=== PATIENT | male | born 1955 ===

== ENCOUNTER 2017-03-03 21:49 | Observation (INO) | payer OTHER ==
--- NOTE | 2017-03-03 22:39 | ED PDOC ---
Arrival/HPI - General Chief Complaint: Weakness/Neurological Deficit Time Seen by Provider: 03/03/17 22:12 Historian: Patient - History of Present Illness Narrative History of Present Illness (Text): 03/03/17 22:30 Kyle Poon is a 61 year old male who presents to the emergency department complaining of confusion and lapse in memory. States he [place] [facility] [place]. Patient states he does not recall any events that happened throughout the day. Patient was in [place] preparing to leave to [place] following a presentation when he began to feel sick. Patient's friend then drove him half way to [place] where his picked him up. Patient was able to dictate the events in the emergency department after he was reminded of the events by his friend and family. Patient states he still does not remember traveling via car or giving a presentation in the morning. Family informed PMD, , of the symptoms who advised him to present to emergency department for further evaluation. Denies any fever, chills, headache , chest pain, shortness of breath, nausea, vomiting, diarrhea, urinary symptoms , or any other complaints at this time. PMD: . Time/Duration: Other (today ) Symptom Course: Improving Severity Level: Mild Activities at Onset: Light Past Medical History - Provider Review Nursing Documentation Reviewed: Yes - Musculoskeletal/Rheumatological Hx Falls: No - Genitourinary/Gynecological Hx Prostate Problems: Yes - Psychiatric Hx Depression: No Hx Emotional Abuse: No Hx Physical Abuse: No Hx Substance Use: No - Suicidal Assessment Feels Threatened In Home Enviroment: No Family/Social History - Physician Review Nursing Documentation Reviewed: Yes Family/Social History: No Known Family HX Smoking Status: Never Smoked Hx Alcohol Use: No Hx Substance Use: No Hx Substance Use Treatment: No Allergies/Home Meds Allergies/Adverse Reactions: Allergies No Known Allergies Allergy (Verified 08/17/12 22:39) Home Medications: Home Meds Medication Instructions Recorded Confirmed Acetaminophen/Codeine Phosph 1 tab PO 08/17/12 08/17/12 [Tylenol W/Codeine #3 300 mg-30 mg] Ciprofloxacin [Cipro] 500 mg PO 08/17/12 08/17/12 Review of Systems - Physician Review All systems were reviewed & negative as marked: Yes - Review of Systems Constitutional: Normal. absent: Fatigue, Fevers Respiratory: Normal. absent: SOB, Cough, Sputum Cardiovascular: Normal. absent: Chest Pain, Palpitations Gastrointestinal: Normal. absent: Abdominal Pain, Diarrhea, Nausea, Vomiting Neurological: Other (confusion and unable to recall events today ). absent: Headache, Dizziness Psychiatric: Normal Physical Exam Vital Signs Reviewed: Yes Vital Signs Temp Pulse Resp BP Pulse Ox 03/04/17 01:15 56 L 20 130/87 98 03/04/17 00:14 55 L 16 133/93 H 98 03/03/17 22:40 61 16 142/79 97 03/03/17 21:57 98.4 F 56 L 18 152/98 H 98 Temperature: Afebrile Blood Pressure: Normal Pulse: Regular Respiratory Rate: Normal Appearance: Positive for: Well-Appearing, Non-Toxic, Comfortable Pain Distress: None Mental Status: Positive for: Alert and Oriented X 3 - Systems Exam Head: Present: Atraumatic, Normocephalic Pupils: Present: PERRL Conjunctiva: Present: Normal Mouth: Present: Moist Mucous Membranes Respiratory/Chest: Present: Clear to Auscultation, Good Air Exchange. No: Respiratory Distress, Accessory Muscle Use Cardiovascular: Present: Regular Rate and Rhythm, Normal S1, S2. No: Murmurs Abdomen: Present: Normal Bowel Sounds. No: Tenderness, Distention, Peritoneal Signs Upper Extremity: Present: Normal Inspection. No: Cyanosis, Edema Lower Extremity: Present: Normal Inspection. No: Edema Neurological: Present: GCS=15, CN II-XII Intact, Speech Normal, Motor Func Grossly Intact, Normal Sensory Function Skin: Present: Warm, Dry, Normal Color. No: Rashes Psychiatric: Present: Alert, Oriented x 3, Normal Insight, Normal Concentration Medical Decision Making ED Course and Treatment: 03/03/17 22:44 Impression: A 61 year old male who presents to the emergency department complaining of confusion and lapse in memory. Patient unable to remember events that happened today. Plan: -- CT head -- EKG -- Labs, cardiac enzymes -- Drug screen -- Alcohol level -- Blood culture -- Urine culture -- Urinalysis -- Reassess and disposition Progress Notes: 03/04/17 01:43 EKG reviewed by me: Sinus Bradycardia @ 57 bpm. Left axis devation. Moderate voltage criteria for LVH CT Head results reviewed: FINDINGS: Brain: Unremarkable. No hemorrhage. No significant white matter disease. No edema. Ventricles: Unremarkable. No ventriculomegaly. Bones/joints: Unremarkable. No acute fracture. Soft tissues: Unremarkable. Vasculature: Calcific atherosclerosis of the bilateral carotid siphon. Sinuses: Unremarkable as visualized. No acute sinusitis. Mastoid air cells: Unremarkable as visualized. No mastoid effusion. IMPRESSION: No acute findings. Case discussed with Dr. Bello who is aware and agrees with the plan to observe patient at med/surg for altered mental status. Accepts patient under his service with on neurology consult. - Lab Interpretations Lab Results: 03/03/17 22:40 03/03/17 22:40 Lab Results 03/03/17 23:15: Ammonia 27 03/03/17 23:00: Urine Opiates Screen Negative, Urine Methadone Screen Negative, Ur Barbiturates Screen Negative, Ur Phencyclidine Scrn Negative, Ur Amphetamines Screen Negative, U Benzodiazepines Scrn Negative, U Oth Cocaine Metabols Negative, U Cannabinoids Screen Negative 03/03/17 23:00: Urine Color Yellow, Urine Appearance Sl cloudy, Urine pH 6.0, Ur Specific Garrison 1.020, Urine Protein Negative, Urine Glucose (UA) Negative, Urine Ketones Negative, Urine Blood Trace-lysed H, Urine Nitrate Negative, Urine Bilirubin Negative, Urine Urobilinogen 0.2, Ur Leukocyte Esterase Negative , Urine RBC 0 - 2, Urine WBC 0 - 2, Ur Epithelial Cells 0 - 2 03/03/17 22:40: Alcohol, Quantitative < 10 03/03/17 22:40: Sodium 138, Potassium 3.5 L, Chloride 103, Carbon Dioxide 27, Anion Gap 12, BUN 18, Creatinine 1.1, Est GFR ( Amer) > 60, Est GFR (Non- Af Amer) > 60, Random Glucose 104, Calcium 9.4, Phosphorus 3.8, Magnesium 2.1, Total Bilirubin 0.6, AST 35, ALT 45, Alkaline Phosphatase 60, Lactate Dehydrogenase 414, Total Creatine Kinase 116, Troponin I 0.03, Total Protein 7.8 , Albumin 4.4, Globulin 3.4, Albumin/Globulin Ratio 1.3 03/03/17 22:40: PT 10.7, INR 0.99, APTT 27.8 03/03/17 22:40: WBC 7.2, RBC 4.95, Hgb 16.2, Hct 45.5, MCV 91.9, MCH 32.7, MCHC 35.6, RDW 13.6, Plt Count 185, MPV 10.0, Gran % 62.6, Lymph % (Auto) 21.3 L, Cache % (Auto) 13.6 H, Eos % (Auto) 1.8, Baso % (Auto) 0.7, Gran # 4.51, Lymph # 1.5, Cache # 1.0 H, Eos # 0.1, Baso # 0.05 I have reviewed the lab results: Yes - RAD Interpretation Radiology Orders: 03/03/17 22:29 HEAD W/O CONTRAST [CT] Stat Office Runner: Radiologist - EKG Interpretation Interpreted by ED Physician: Yes Type: 12 lead EKG - Medication Orders Current Medication Orders: Discontinued Medications Acetaminophen (Tylenol 325mg Tab) 650 mg PO Q6H PRN PRN Reason: Pain, Mild (1-3) Last Admin: 03/04/17 11:17 Dose: 650 mg Re-Assess: MAR Pain/Vitals Document 03/04/17 12:17 SD (Rec: 03/04/17 13:10 [facility] Pain Reassessment Is This A Pain ReAssessment? Yes Sleep Is patient sleeping during reassessment? Yes Home Med (*Refrigerator Open) Confirm Administered Dose 1 unit XX .STK-MED ONE Stop: 03/04/17 06:05 Home Med (*Refrigerator Open) Confirm Administered Dose 1 unit XX .STK-MED ONE Stop: 03/04/17 06:11 Home Med (*Refrigerator Open) Confirm Administered Dose 1 unit XX .STK-MED ONE Stop: 03/04/17 07:36 Home Med (*Refrigerator Open) Confirm Administered Dose 1 unit XX .STK-MED ONE Stop: 03/04/17 10:15 Pneumococcal Polyvalent Vaccine (Pneumovax 23 Vaccine) 0.5 ml IM .ONCE ONE Stop: 03/04/17 03:56 Potassium Chloride (K-Dur 20 Meq Er Tab) 20 meq PO ONCE ONE Stop: 03/04/17 00:45 Last Admin: 03/04/17 01:15 Dose: 20 meq - Scribe Statement The provider has reviewed the documentation as recorded by the Kitty Zhang Provider Attestation: Provider Scribe Attestation: All medical record entries made by the Scribe were at my direction and personally dictated by me. I have reviewed the chart and agree that the record accurately reflects my personal performance of the history, physical exam, medical decision making, and the department course for this patient. I have also personally directed, reviewed, and agree with the discharge instructions and disposition. Disposition/Present on Arrival - Present on Arrival Any Indicators Present on Arrival: No History of DVT/PE: No History of Uncontrolled Diabetes: No Urinary Catheter: No History of Decub. Ulcer: No History Surgical Site Infection Following: None - Disposition Have Diagnosis and Disposition been Completed?: Yes Diagnosis: Altered mental status Disposition: HOSPITALIZED Disposition Time: 00:50 Condition: GOOD
[2017-03-03 22:45] LABS: ADD MANUAL DIFF? NO
[2017-03-03 22:51] LABS: BASO # 0.05 K/mm3 (0.0-2.0); BASO % 0.7 % (0.0-3.0); EOS # 0.1 (0.0-0.7); EOS % 1.8 % (1.5-5.0); GRAN # 4.51 (1.4-6.5); GRAN % 62.6 % (50.0-68.0); HEMATOCRIT 45.5 % (42.0-52.0); LYMPH # 1.5 (1.2-3.4); LYMPH % 21.3 % (22.0-35.0); MEAN CELL VOLUME 91.9 fL (80.0-105.0); MEAN CORPUSCULAR HEMOGLOBIN 32.7 pg (25.0-35.0); MEAN CORPUSCULAR HGB CONC 35.6 g/dl (31.0-37.0); MONO % 13.6 % (1.0-6.0); PLATELET COUNT 185 10^3/uL (120.0-450.0); RED CELL DISTRIBUTION WIDTH 13.6 % (11.5-14.5); WHITE BLOOD COUNT 7.2 10^3/ul (4.5-11.0)
[2017-03-03 22:59] LABS: ALB/GLOB RATIO 1.3 (1.1-1.8); ALKALINE PHOSPHATASE 60 U/L (38-133); ALT/SGPT 45 U/L (7-56); AST/SGOT 35 U/L (15-59); BILIRUBIN,TOTAL 0.6 mg/dL (0.2-1.3); BLOOD UREA NITROGEN 18 mg/dL (7-21); CALCIUM 9.4 mg/dL (8.4-10.5); CARBON DIOXIDE 27 mmol/L (21-33); CHLORIDE 103 mmol/L (98-107); GFR AFRICAN-AMERICAN > 60; GLUCOSE,RANDOM 104 mg/dL (70-110); MAGNESIUM 2.1 mg/dL (1.7-2.2); PHOSPHOROUS 3.8 mg/dL (2.5-4.5); POTASSIUM 3.5 mmol/L (3.6-5.0); SODIUM 138 mmol/L (132-148); TOTAL PROTEIN 7.8 g/dL (5.8-8.3)
[2017-03-03 23:01] LABS: INR 0.99 (0.93-1.08); PARTIAL THROMBOPLASTIN TIME 27.8 Seconds (23.7-30.8)
[2017-03-03 23:10] LABS: TROPONIN I 0.03 ng/mL
[2017-03-03 23:20] LABS: URINE BILIRUBIN NEGATIVE (NEGATIVE); URINE BLOOD TRACE-LYSED (NEGATIVE); URINE GLUCOSE (UA) NEGATIVE (NEGATIVE); URINE KETONE NEGATIVE (NEGATIVE); URINE LEUKOCYTE ESTERASE NEGATIVE Leu/uL (NEGATIVE); URINE PROTEIN NEGATIVE mg/dL (<30 mg/dL); URINE UROBILINOGEN 0.2 E.U./dL (<1 E.U./dL)
[2017-03-03 23:23] LABS: URINE APPEARANCE SL CLOUDY (CLEAR); URINE COLOR YELLOW (YELLOW)
[2017-03-03 23:33] LABS: URINE EPITHELIAL CELLS 0 - 2 /hpf (0-5); URINE RBC 0 - 2 /hpf (0-2); URINE WBC 0 - 2 /hpf (0-6)
[2017-03-04] MEDS ORDERED: Potassium Chloride 20 mEq ER Tab PO ONE (00:44)
[2017-03-04 01:42] VITALS: RESP 20
[2017-03-04 03:55] VITALS: BMI 35.6
[2017-03-04] MEDS ORDERED: Pneumococcal 23-Valent Vaccine IM ONE (03:55)
[2017-03-04 08:03] VITALS: BP 127/72; PULSE 55; TEMP 98.3; O2SAT 98
--- NOTE | 2017-03-04 08:38 | CT ---
PROCEDURE: CT HEAD WITHOUT CONTRAST. HISTORY: ams COMPARISON: None available. TECHNIQUE: Axial computed tomography images were obtained through the head/brain without intravenous contrast. Radiation dose: Total exam DLP = 768 mGy-cm. This CT exam was performed using one or more of the following dose reduction techniques: Automated exposure control, adjustment of the mA and/or kV according to patient size, and/or use of iterative reconstruction technique. FINDINGS: HEMORRHAGE: No intracranial hemorrhage. BRAIN: No mass effect or edema. No atrophy or chronic microvascular ischemic changes. VENTRICLES: Unremarkable. No hydrocephalus. CALVARIUM: Unremarkable. PARANASAL SINUSES: Unremarkable as visualized. No significant inflammatory changes. MASTOID AIR CELLS: Unremarkable as visualized. No inflammatory changes. The report concurs with the preliminary [facility] report OTHER FINDINGS: None. IMPRESSION: Normal CT of the Head.
--- NOTE | 2017-03-04 10:46 | MRI ---
PROCEDURE: MRI BRAIN WITHOUT CONTRAST HISTORY: ams COMPARISON: None. TECHNIQUE: Multiplanar, multisequence MR images of the brain were obtained without intravenous contrast enhancement. FINDINGS: HEMORRHAGE: None DWI: No evidence of an acute or early subacute infarction. BRAIN PARENCHYMA: No mass effect or edema. No atrophy or chronic microvascular ischemic changes. VENTRICLES: Unremarkable. No hydrocephalus. CRANIUM: Unremarkable. ORBITS: Grossly unremarkable. PARANASAL SINUSES/MASTOIDS: Clear VASCULAR SYSTEM: Skull base flow voids intact. OTHER FINDINGS: None. IMPRESSION: Unremarkable non contrast enhanced MRI of the brain.
--- NOTE | 2017-03-04 10:53 | HP ---
HISTORY OF PRESENT ILLNESS: The patient is a 61-year-old man with no significant past medical history who presented to [facility] Emergency Department for evaluation of a 1-day history of confusion, amnesia and disorientation. The patient sustained a concussion on 01/23/2017 during a baseball game. He was evaluated at [facility] with neuro imaging studies at that time consisting of a CT of the head, which demonstrated no acute pathology. The patient was followed by his PMD shortly thereafter and his sole complaint at that time was of mild intermittent headaches which were relieved with NSAIDs. The patient was advised that given the nature of his injury, a neurological evaluation would likely be prudent and recommendations were made to follow up with a neurologist. For the next several days, the patient was relatively asymptomatic with the exception of 2 or 3 minor episodes of epistaxis. The patient called his PMD and reported that he had been taking aspirin 81 mg p.o. daily and was advised to discontinue this medication as it may be contributing to his epistaxis. The patient did so and subsequently had resolution of his epistaxis and effectively resolution of all his neurologic symptoms. On the day prior to presentation to the Emergency Department, the patient was in [place] on a business trip when he was noted to be altered by one of his coworkers. 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 Given the patient's odd behavior, his colleague had advised him not to fly back to [place] and had actually offered to drive the patient back towards [place] where he was met with his at a [facility]. This morning upon talking to the patient, he reports that he still has no recollection of the events for most of the day, but does recall the car ride back down towards [place] during which time he felt that he was very repetitive and was experiencing flight of ideas. The patient denies any facial droop, weakness, paresthesias, nuchal rigidity, headache, photophobia, fevers, chills or rigors associated with the symptoms. He also denies any alcohol use, illicit drug abuse or use of any new prescription or [id number] medications. PAST MEDICAL HISTORY: None. PAST SURGICAL HISTORY: Prostate biopsy. ALLERGIES: No known drug allergies. MEDICATIONS: None. FAMILY HISTORY: Noncontributory. SOCIAL HISTORY: The patient denies any toxic habits. REVIEW OF SYSTEMS: A 14 point review of systems is negative except as per HPI. PHYSICAL EXAMINATION: VITAL SIGNS: Temperature 98.3, pulse 55, blood pressure 127/72, respiratory rate 20, oxygen saturation 98% on room air. GENERAL: No apparent distress. HEENT: Normocephalic, atraumatic. PERRL, EOMI, no scleral icterus, no conjunctival pallor. NECK: Supple, with full range of motion, no JVD, no bruits, no lymphadenopathy. LUNGS: Clear to auscultation. CARDIOVASCULAR: Regular rate and rhythm. Normal S1 and S2. ABDOMEN: Normoactive bowel sounds, soft, nontender, nondistended. EXTREMITIES: No edema. NEUROLOGIC: Awake, alert and oriented x 3. No focal motor deficits. Gait remains intact. Sensation is intact. LABORATORY DATA: CBC reviewed and unremarkable. CMP reviewed and unremarkable with the exception of potassium of 3.5. Urinalysis unremarkable. Urine toxicology screen is negative. IMAGING STUDIES: CT of the head without contrast demonstrates no acute pathology. ASSESSMENT: The patient is a 61-year-old man with no significant past medical history who presented to [facility] for evaluation of a 1-day history of altered mental status, amnesia and confusion, who does have a history of a concussion which was sustained on 01/23/2017. PLAN: 1. Altered mental status, consider secondary to post-concussive syndrome. The patient has no evidence of infectious etiology or toxic metabolic encephalopathy. CT of the head is reviewed and no acute pathology. An MRI of the brain is ordered and pending. Dr. Yang of neurology has also been consulted for further evaluation. 2. Prophylaxis. GI prophylaxis not indicated as patient is eating. DVT prophylaxis is not indicated as patient is ambulatory. CODE STATUS: Full code. Félix Bello MD cc: [id number] TT: 03/04/2017 10:52:54 joseph CASIANO
--- NOTE | 2017-03-04 15:14 | CARD ---
APPROVED REPORT EKG Measurement Heart [id number] NM 176P-1 [id number] <Conclusion> Sinus bradycardia Left axis deviation/LAHB PRWP NSSTW changes
--- NOTE | 2017-03-04 20:37 | DS ---
ADMITTING DIAGNOSIS: Altered mental status. DISCHARGE DIAGNOSIS: Postconcussive syndrome. SECONDARY DIAGNOSIS: None. CONSULTATIONS: Dr. Yang (neurology). IMAGING STUDIES: CT of the head without contrast, which demonstrated no acute pathology. MRI of the brain without contrast, which demonstrated no acute pathology. HISTORY OF PRESENT ILLNESS: The patient is a 61-year-old man with no significant past medical histor y who presents to [facility] Emergency Department for evaluation of a 1-day history of co nfusion, amnesia and disorientation. The patient sustained a concussion on 01/23/2017 during a [employer] [place] game and was evaluated at [facility] immediately after the incident with neuro im aging studies being reportedly normal. Initially, after the event the patient complained of mild hea dache, which responded to [id number] NSAIDs and stated after approximately 1-2 weeks his sympto ms had subsided. For the most part the patient stated that he felt well with the exception of a few intermittent headaches, but otherwise denied any other neurological symptoms. On the day of presenta tion to the Emergency Department, the patient was in [place] for a business meeting and stated that he was noted to be profoundly confused by his coworker. The patient states that he was in [facility] of a business meeting and has no recollection of the meeting and furthermore went to lunch after and has no recollection of that lunch. Given his increased confusion, his coworker had decided to putting the patient on a plane to fly back to [place] was unsafe and had offered to drive the pat ient back to [place] from [place]. The patient was met by his fpc between [facility] and [place] and was subsequently brought to the Emergency Department for further evaluation. Upon arrival to the ED, he was noted to be afebrile and hemodynamically stable and initial laborato ry studies were unremarkable. He was also noted to be awake, alert and oriented and neurologically i ntact during his evaluation in the Emergency Department. He was subsequently admitted to the [facility] for continued neurological workup. HOSPITAL COURSE: While on the hospital [facility], the patient remained afebrile and hemodynamically stabl e. He underwent a CT of the head and MRI of the brain, both of which were unremarkable. The patient stated that he felt back to his baseline and was deemed stable for discharge to home. CONDITION: Good, improved. DISPOSITION: To home. DISCHARGE MEDICATIONS: Motrin 800 mg p.o. q. 8 hours p.r.n. pain. DISCHARGE INSTRUCTIONS: The patient was advised if he has any recurrence of his symptoms to present to his PMD or to the nearest Emergency Department immediately. FOLLOWUP: The patient to follow up with his PMD within 1 week of discharge. The patient will have cammie rodriguez arranged with Dr. Yang within 2 weeks. Félix Bello MD cc: [id number] TT: 03/04/2017 20:36:49 mo
== END 2017-03-04 14:45 | disposition home or self-care (01) ==
LOC: ED 21:49 → ERH 03-04 00:48 → 5RNO 03-04 02:02
PROVIDERS: ADMIT Student in an Organized Health Care Education/Training Program; ATTEND Student in an Organized Health Care Education/Training Program
DX: F07.81 Postconcussional syndrome (principal); Z79.82 Long term (current) use of aspirin
CPT/HCPCS: 70450; 70551; 80053; 80320; 80324; 80345; 80346; 80349; 80353; 80358; 80361; 81001; 82140; 82550; 83615; 83735; 83992; 84100; 84484; 85025; 85610; 85730; 87040; 87086; 93005; 99285; G0378